=== PATIENT | female | born 1985 | race Hispanic/Latino ===

== ENCOUNTER 2018-05-08 14:58 | Emergency (ER) | payer BC | END 2018-05-08 16:02 | disposition home or self-care (01) | LOC: EDH 14:58 | DX: M77.11 Lateral epicondylitis, right elbow (principal); Z90.49 Acquired absence of other specified parts of digestive tract; Z98.890 Other specified postprocedural states | CPT/HCPCS: 99281 ==

== ENCOUNTER 2018-12-06 12:42 | Emergency (ER) | payer BC ==
[2018-12-06] MEDS ORDERED: KETOROLAC TROMETHAMINE 60 MG/2 ML VIAL ONE (13:09)
[2018-12-06] MEDS ORDERED: DIAZEPAM 2 MG TAB ONE (13:09)
== END 2018-12-06 13:49 | disposition home or self-care (01) ==
LOC: EDH 12:42
DX: S39.012A Strain of muscle, fascia and tendon of lower back, initial encounter (principal); Z90.49 Acquired absence of other specified parts of digestive tract; X50.0XXA Overexertion from strenuous movement or load, initial encounter; Y93.89 Activity, other specified; Y92.89 Other specified places as the place of occurrence of the external cause; Y99.8 Other external cause status
CPT/HCPCS: 96372; 99284; J1885